=== PATIENT | female | born 1980 | race Two or more races ===

== ENCOUNTER 2016-11-26 16:35 | Observation (INO) | payer MEDICAID ==
[2016-11-26] MEDS ORDERED: PREN-153 OR (17:22)
== END 2016-11-26 19:20 | disposition home or self-care (01) | DRG 566 ==
LOC: LDRP 16:35
PROVIDERS: ADMIT Specialist; ATTEND Specialist
DX: O26.893 Other specified pregnancy related conditions, third trimester (principal); O09.523 Supervision of elderly multigravida, third trimester; Z3A.36 36 weeks gestation of pregnancy
CPT/HCPCS: 59025; 76805; 76818; 81002; G0378

== ENCOUNTER 2016-11-27 10:55 | Observation (INO) | payer MEDICAID ==
[~2016-11-27 10:55] MED LIST: PREN-153 OR
== END 2016-11-27 13:50 | disposition home or self-care (01) | DRG 566 ==
LOC: LDRP 10:55
PROVIDERS: ADMIT Specialist; ATTEND Specialist
DX: O36.5930 Maternal care for other known or suspected poor fetal growth, third trimester, not applicable or unspecified (principal); Z3A.32 32 weeks gestation of pregnancy
CPT/HCPCS: 59025; 76818; 81002; G0378

== ENCOUNTER 2016-12-02 13:15 | Observation (INO) | payer MEDICAID ==
[~2016-12-02] VITALS: Ht 165.1 cm; Wt 81.6 kg
[2016-12-02] MEDS ORDERED: LACTATED RINGER'S 2,000 ML IV ONE (15:00)
[2016-12-02] MEDS ORDERED: BETAMETHASONE ACET (6MG/ML) 5ML VIAL ONE (16:13)
[2016-12-02] MEDS ORDERED: BETAMETHASONE ACET (6MG/ML) 5ML VIAL IM ONE (16:15)
[2016-12-02 16:16] LABS: Partial Thromboplastin Time 27.3 sec (22.64-33.71); Prothrombin Time 9.7 sec (9.37-12.3)
[2016-12-02 16:33] LABS: Albumin 2.5 g/dL (3.4-5.0); BUN/Creatinine Ratio 17.7; Basophils # (auto) 0 uL; Basophils % (auto) 0.5 % (0.0-2.0); Bilirubin, Total 0.2 mg/dL (0.2-1.0); Calcium 7.9 mg/dL (8.5-10.1); Eosinophils # (auto) 0 uL; Eosinophils % (auto) 0.5 % (0.0-7.0); Hematocrit 36.3 % (36.0-46.0); Hemoglobin 12.2 g/dL (12.2-16.2); Lymphocytes # (auto) 2.4 uL; Lymphocytes % (auto) 24.8 % (10.0-50.0); Mean Corpuscular Hemoglobin 30.2 pg (28.0-32.0); Mean Corpuscular Hgb Conc. 33.6 g/dL (32.0-36.0); Mean Platelet Volume 9.4 fL (7.4-10.4); Monocytes # (auto) 0.8 uL; Monocytes % (auto) 7.9 % (0.0-12.0); Neutrophils # (auto) 6.5 uL; Neutrophils % (auto) 66.3 % (37.0-80.0); Platelet Count (auto) 274 10^3/uL (140-450); Potassium 3.7 mmol/L (3.5-5.1); Red Cell Distribution Width 14.4 % (11.6-16.0); Total Protein 6.7 g/dL (6.4-8.2); White Blood Cell 9.8 10^3/uL (4.4-10.8)
[2016-12-02 16:41] LABS: Urine Bilirubin Negative (Negative); Urine Blood Negative /uL (Negative); Urine Color Yellow (Yellow); Urine Glucose Normal (Normal); Urine Ketone Negative (Negative); Urine Nitrite Negative (Negative); Urine RBC <1 /hpf (0 - 4); Urine Squamous Epithelial Cell FEW /hpf (<5); Urine Urobilinogen Normal (Negative); Urine pH 6.5 (5.0-8.0)
[2016-12-02 17:12] LABS: INR 0.89 (0.9-1.15)
== END 2016-12-02 18:44 | disposition short-term general hospital (02) | DRG 955 ==
LOC: LDRP 13:15
PROVIDERS: ADMIT Obstetrics & Gynecology; ATTEND Obstetrics & Gynecology
DX: O26.899 Other specified pregnancy related conditions, unspecified trimester (principal); Z3A.00 Weeks of gestation of pregnancy not specified
CPT/HCPCS: 36415; 59025; 76818; 80053; 81001; 81002; 85025; 85610; 85730; 86850; 86900; 86901; G0378; J0702; 96361; 96366; 96372